=== PATIENT | male | born 1990 | race Caucasian/White ===

== ENCOUNTER 2017-01-03 15:06 | Emergency (ER) | payer SELFPAY ==
[2017-01-03 15:11] VITALS: BP 124/91
--- NOTE | 2017-01-03 15:46 | ER Document Report ---
HPI - HPI Patient complains to provider of: right antecubital abscess Onset: Other - several days Onset/Duration: Gradual Pain Level: 0 Context: 26 yo IV cocaine and heroin user with healing left antecubital abscess now has one right antecubital space where he missed 2 veins and used same syringe that he used on the left. Took left over Keflex without relief. The left abscess he drained on his own and is getting better. No fever or myalgias. 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 Renal/ Medical History: Denies: Hx Peritoneal Dialysis Psychiatric Medical History: Reports: Hx Depression Surgical Hx: Negative Vertical Provider Document - CONSTITUTIONAL Agree With Documented VS: Yes Exam Limitations: No Limitations General Appearance: No Apparent Distress - INFECTION CONTROL TRAVEL OUTSIDE OF THE [place] IN LAST 30 DAYS: No - HEENT HEENT: Normocephalic - NECK Neck: Supple - RESPIRATORY Respiratory: Breath Sounds Normal, No Respiratory Distress O2 Sat by Pulse Oximetry: 100 - CARDIOVASCULAR Cardiovascular: Regular Rate, Regular Rhythm - NEURO Level of Consciousness: Awake, Alert, Appropriate Motor/Sensory: No Motor Deficit, No Sensory Deficit - DERM Integumentary: Abscess - right antecubital space 3 cm across with erythema, 2 areas of fluctuance Course - Re-evaluation Re-evalutation: 01/03/17 16:34 consult NABEEL kim for bedisde I and D, use keflex as well as septra for antibiotic coverage. - Vital Signs Vital signs: Temp Pulse Resp BP Pulse Ox 98.8 F 99 20 124/91 H 100 01/03/17 15:10 01/03/17 15:10 01/03/17 15:10 01/03/17 15:10 01/03/17 15:10 Procedures - Incision and Drainage Right Arm Time completed: 17:23 Type: Simple Anesthetic type: 1% Lidocaine mL's of anesthetic: 4 Blade size: 11 I&D procedure: Betadine prep applied Incision Method: Incision made by scalpel - two 6 mm incisions over 2 right anticubital flucant abscess, superficial large pus out, irrigation between the 2 incision with ocmmunication, NS irrigation, packed each incision with corner of 4 x 4 gauze Discharge - Discharge Clinical Impression: I and D right antecubutal abscess, IV durg user Condition: Good Disposition: HOME, SELF-CARE Instructions: Abscess ([facility]), Cephalexin ([facility]), Post Incision and Drainage, Trimethoprim-Sulfa ([facility]) Additional Instructions: elevate right arm use warm compress wound check thursday to er if fever, increased size, pain, red area do not use right arm for IV injection resources given to you for drug addiction rehab to help stop use Please complete the patient satisfaction survey if you get one, and return it.. If you do not receive a survey, then you can go to the [facility] website, [email or web address] and place your comments about your very good care. Thank you very much. It was a pleasure being your medical provider today. Prescriptions: Cephalexin Monohydrate [Keflex 500 mg Capsule] 500 mg PO QID #28 capsule Sulfamethoxazole/Trimethoprim [Sulfamethoxazole-Tmp Ds Tablet] 1 each PO BID # 14 tablet
[2017-01-03] MEDS ORDERED: SULFAMETHOXAZOLE/TRIMETHOPRIM 800-160 MG TABLET PO ONE (15:54)
[2017-01-03] MEDS ORDERED: LIDOCAINE 4%/TETRACAINE 0.5%/EPI 0.18% 5 ML TOPICAL SOLN TOP ONE (16:30)
[2017-01-03] MEDS ORDERED: CEPHALEXIN 500 MG CAPSULE PO ONE (16:34)
== END 2017-01-03 17:28 | disposition home or self-care (01) ==
LOC: ER 15:06
PROC: 0H9DXZZ Drainage of Right Lower Arm Skin, External Approach (ICD-10-PCS; principal; 2017-01-03)
DX: L02.413 Cutaneous abscess of right upper limb (principal); F14.90 Cocaine use, unspecified, uncomplicated; F11.90 Opioid use, unspecified, uncomplicated; F32.9 Major depressive disorder, single episode, unspecified; F17.200 Nicotine dependence, unspecified, uncomplicated; Z79.899 Other long term (current) drug therapy
CPT/HCPCS: 99283; 87070; 87205; 87075; 87077; 87186; 10060; J3490

== ENCOUNTER 2017-01-04 15:34 | Emergency (ER) | payer SELFPAY ==
[2017-01-04 15:41] VITALS: BP 132/74
--- NOTE | 2017-01-04 16:08 | ER Document Report ---
HPI - HPI Pain Level: 2 Notes: Patient is a 26-year-old male who presents for a wound recheck of his right antecubital space status post incision and drainage yesterday. Patient states that he is taking his medications as directed. He has not switched the bandage since yesterday. Patient states that it is starting to feel little bit better and he has not noticed any obvious amounts of drainage. No other concerns or complaints. Denies any drug allergies. Denies any headache, fever, chest pain , palpitations, syncope, cough, shortness of breath, wheeze, dyspnea, abdominal pain, nausea/vomiting/diarrhea, muscle paralysis/weakness. + IV drug user. - ROS Notes: REVIEW OF SYSTEMS: CONSTITUTIONAL : Denies fever, chills, or sweats. Denies recent illness. EENT: Denies eye, ear, throat, or mouth pain or symptoms. Denies nasal or sinus congestion or discharge. Denies throat, tongue, or mouth swelling or difficulty swallowing. CARDIOVASCULAR: Denies chest pain. Denies palpitations or racing or irregular heart beat. Denies ankle edema. RESPIRATORY: Denies cough, cold, or chest congestion. Denies shortness of breath, difficulty breathing, or wheezing. GASTROINTESTINAL: Denies abdominal pain or distention. Denies nausea, vomiting , or diarrhea. Denies blood in vomitus, stools, or per rectum. Denies black, tarry stools. Denies constipation. GENITOURINARY: Denies difficulty urinating, painful urination, burning, frequency, blood in urine, or discharge. MUSCULOSKELETAL: Denies back or neck pain or stiffness. Denies joint pain or swelling. SKIN: see hpi NEUROLOGICAL: Denies confusion or altered mental status. Denies passing out or loss of consciousness. Denies dizziness or lightheadedness. Denies headache. Denies weakness or paralysis or loss of use of either side. Denies problems with gait or speech. Denies sensory loss, numbness, or tingling. Denies seizures. PSYCHIATRIC: Denies anxiety or stress. Denies depression, suicidal ideation, or homicidal ideation. ALL OTHER SYSTEMS REVIEWED AND NEGATIVE. Dictation was performed using [employer] voice recognition software - DERM Skin Color: Normal Past Medical History - Social History Smoking Status: Unknown if Ever Smoked Family History: Reviewed & Not Pertinent Renal/ Medical History: Denies: Hx Peritoneal Dialysis Vertical Provider Document - CONSTITUTIONAL Agree With Documented VS: Yes Notes: PHYSICAL EXAMINATION: GENERAL: Well-appearing, well-nourished and in no acute distress. NECK: Normal range of motion, supple without lymphadenopathy LUNGS: Breath sounds clear to auscultation bilaterally and equal. No wheezes rales or rhonchi. HEART: Regular rate and rhythm without murmurs, rubs, gallops. Musculoskeletal: Rt arm: FROM to passive/active. Strength 5+/5. Extremities: No cyanosis, clubbing, or edema b/l. Peripheral pulses 2+. Capillary refill less than 3 seconds. NEUROLOGICAL: Cranial nerves grossly intact. Normal speech, normal gait. Normal sensory, motor exams PSYCH: Normal mood, normal affect. SKIN: I&D site noted x2 (small) drainage sites over rt antecubital space. Continued erythema and mild induration with tenderness. Pt notes improvement since yesterday overall with pain and erythema. - INFECTION CONTROL TRAVEL OUTSIDE OF THE [place] IN LAST 30 DAYS: No - RESPIRATORY O2 Sat by Pulse Oximetry: 97 Course - Re-evaluation Re-evalutation: 01/04/17 16:05 Patient is an afebrile, well-hydrated, 26-year-old male who presents to the ED for wound recheck status post incision and drainage yesterday. Vitals are stable. PE is otherwise unremarkable. The incision and drainage does appear to be healing. Wound irrigated and cleansed. Packing was removed and new packing was replaced. Patient tolerated procedure well without any complications. Wound dressing was placed. Wound culture showed preliminary of gram-positive bacteria with sensitivity pending. Continue antibiotics as directed. Recheck with your PCM/ED in 2 days for wound recheck. Return to the ED with any worsening/concerning symptoms otherwise as reviewed discharge. Wound instructions reviewed with the patient. Patient in agreement. - Vital Signs Vital signs: Temp Pulse Resp BP Pulse Ox 98.2 F 97 16 132/74 H 97 01/04/17 15:39 01/04/17 15:39 01/04/17 15:39 01/04/17 15:39 01/04/17 15:39 Discharge - Discharge Clinical Impression: Encounter for wound re-check Condition: Stable Disposition: HOME, SELF-CARE Instructions: Family Physicians / Practices Additional Instructions: You may shower but no submersion of the wound under water. Avoid IV drug use. Change the dressing daily and use a small amount of triple antibiotic ointment over the open wound x2 days. Return to the ED and/or your PCM in 2-3 days for recheck and continue direction for wound packing. Monitor for any signs of worsening pain or redness, streaks, and/or fever. Return to the ED if noticing any of the above symptoms or as needed. Take medications as directed. Forms: Elevated Blood Pressure Referrals: [facility] [Provider Group] - Follow up as needed
== END 2017-01-04 16:14 | disposition home or self-care (01) ==
LOC: ER 15:34
DX: L02.413 Cutaneous abscess of right upper limb (principal)
CPT/HCPCS: 99283; A6266